=== PATIENT | female | born 1940 | race Caucasian/White ===

== ENCOUNTER → 2022-03-10 15:05 | Outpatient (BNVA) | payer MEDICARE, MEDICAID, SELFPAY | PROVIDERS: Visit Provider Family Medicine | DX: I11.0 Hypertensive heart disease with heart failure; I50.9 Heart failure, unspecified; I25.10 Atherosclerotic heart disease of native coronary artery without angina pectoris; J44.9 Chronic obstructive pulmonary disease, unspecified | CPT/HCPCS: 80053; 80061; 83721; 83880; 85025 ==

== ENCOUNTER 2022-03-31 09:25 | Observation (INO) | payer MEDICARE, MEDICAID, SELFPAY ==
[2022-03-31] VITALS (12 sets, daily range): BP systolic 108–153; BP diastolic 68–91; PULSE 73–95; RESP 16–22; TEMP 36.6–36.8; O2SAT 95–97; BMI 22.8
--- NOTE | 2022-03-31 09:57 | P.HP_ITS ---
Providers/Chief Complaint Admitting Physician: Yassine Vann MD Chief Complaint: A-Fib History of Present Illness Ashlee Linn is a 81 year old female presenting to an outside emergency department, [facility], with atrial fibrillation and rapid ventricular rate. She complained of palpitations, starting around 630 on March 30. She also had increased shortness of breath, nausea, and some sharp chest discomfort. Previous episode occurred the week prior in which she took an extra metoprolol. She has a past history of atrial fibrillation, and it had been deemed previously she was not a candidate for anticoagulant secondary to bleeding. She felt weak and that she might pass out but had no syncope. In the emergency department she received Cardizem. She was placed on a Cardizem drip. On arrival here she appears to be in sinus rhythm currently Cardizem was discontinued. She denies any chest discomfort currently. Wants to know information from discharge planning regarding assisted living. Review of Systems General: Reports: 10 or more systems reviewed and unremarkable except in HPI and below Const: Reports: fatigue; Denies: fever(s) or chills Eyes: Denies: change in vision ENMT: Denies: throat pain Card: Reports: palpitations Resp: Reports: dyspnea (Reports this is chronic.) GI: Denies: abdominal pain : Denies: flank pain Musc: Denies: neck pain Skin/Breast: Denies: rash Neuro: Denies: headache(s) Psych: Denies: anxiety or depression Endo: Denies: polyuria [place]/Lymph: Denies: easy bruising All/Imm: Denies: urticaria Medications/Allergies Home Medications Medication Instructions Recorded Confirmed Last Taken Type aspirin 81 mg capsule 81 mg PO DAILY 03/01/22 03/10/22 Unknown History fluticasone propionate 50 1 spray intranasal DAILY 03/01/22 03/10/22 Unknown History mcg/actuation nasal spray,suspension (Flonase Allergy Relief) prednisolone 5 mg tablet 2.5 mg PO BID 03/01/22 03/10/22 Unknown History vitamin B complex (B 1 tab PO DAILY 03/01/22 03/10/22 Unknown History Complex-Vitamin B12 tablet) albuterol sulfate 2.5 mg/3 mL 2.5 mg (3 mL) inhalation Q6H #180 03/08/22 03/10/22 Unknown Rx (0.083 %) solution for nebulization mL albuterol sulfate 5 mg/mL(0.5 %) 5 mg inhalation Q4H PRN 03/10/22 03/10/22 Unknown Rx solution for nebulization bronchospasm #2 units furosemide 20 mg tablet (Lasix) 20 mg PO QAM 30 days #30 tabs 03/10/22 03/10/22 Unknown Rx metoprolol tartrate 75 mg tablet 75 mg PO DAILY 30 days #30 tabs 03/10/22 03/10/22 Unknown Rx nitroglycerin 0.4 mg sublingual 0.4 mg sublingual Q5M PRN 03/10/22 03/10/22 Unknown History tablet (Nitrostat) pantoprazole 20 mg tablet,delayed 20 mg PO DAILY 30 days #30 tabs 03/10/22 03/10/22 Unknown Rx release prednisone 5 mg tablet See Rx Instructions PO DAILY #28 03/10/22 03/10/22 Unknown Rx tabs amlodipine 5 mg tablet 10 mg PO DAILY 03/31/22 03/31/22 Unknown History ferrous sulfate 325 mg (65 mg 325 mg PO DAILY 03/31/22 03/31/22 Unknown History iron) tablet Allergies Allergy/AdvReac Type Severity Reaction Status Date / Time atorvastatin [From Lipitor] Allergy Unknown Verified 03/10/22 07:50 dexamethasone Allergy Unknown Verified 03/10/22 07:50 esomeprazole [From Nexium] Allergy Unknown Verified 03/10/22 07:50 levofloxacin [From Levaquin] Allergy Unknown Verified 03/10/22 07:50 Penicillins Allergy Unknown Verified 03/10/22 07:50 pregabalin [From Lyrica] Allergy Unknown Verified 03/10/22 07:50 Bvzsyvk-HYS-CmC Reductase Allergy Unknown Verified 03/10/22 07:50 Inhibitor Sulfa (Sulfonamide Allergy Unknown Verified 03/10/22 07:50 Antibiotics) tetanus immune globulin Allergy Unknown Verified 03/10/22 07:50 novacain Allergy Unknown Uncoded 03/10/22 07:50 PFSH Acute PFSH: Medical History (Updated 03/31/22 @ 10:38 by Yassine Vann MD) CAD (coronary artery disease) CHF (congestive heart failure) Chronic a-fib Chronic back pain Chronic obstructive pulmonary disease On 2 L of oxygen chronically. Colon cancer Gastroesophageal reflux disease History of colon cancer 2012, no F/U due to prep intolerance History of heart attack Hypertension Surgical History (Updated 03/31/22 @ 10:38 by Yassine Vann MD) History of breast lump removal History of cholecystectomy History of colectomy History of heart artery stent 6 stents Family History Sister Cancer Thyroid disease Father Cancer colon Brother Cancer colon Mother Diabetes Hypertension Heart disease Grandmother Diabetes Daughter Thyroid disease Heart disease Denies family history of Clotting disorder Bleeding disorder Stroke Social History Smoking and tobacco status: former smoker Female Reproductive History: Spontaneous abortions: No Physical Exam Narrative: General exam is a white female, in no distress currently. Telemetry is showing sinus rhythm with frequent PACs HEENT: Pupils equally round. Oropharynx clear. Head is atraumatic and normocephalic. Neck is supple no lymphadenopathy or thyromegaly Cardiovascular regular rate and rhythm with frequent premature beats. No murmur Lungs?breath sounds bilaterally but no wheezes or crackles Abdomen is soft nontender with positive bowel sounds. No obvious organomegaly exam is a deferred Extremities no cyanosis, or edema, cap refill brisk Skin no rash Neuro no obvious focal deficits. Data Other Labs: Chest x-ray demonstrates no infiltrate EKG demonstrates atrial fibrillation with rapid ventricular rate, normal axis, nonspecific ST-T wave changes. Rate was 132. White blood cell count 7.1, hemoglobin 10.4, platelet count 443 Sodium 141, potassium 3.5, chloride 104, bicarb 25, BUN 15, creatinine 0.7, glucose 155. LFTs normal with exception of alk phos of 131 Calcium normal at 9.1 Troponin less than 0.012 Magnesium normal at 2.1 PT PTT normal Urinalysis 3-5 white blood cells, negative nitrate ` A&P Assessment and plan (1) Atrial fibrillation with rapid ventricular response: Patient presented with atrial fibrillation with rapid ventricular rate. I believe she has a history of paroxysmal atrial fibrillation. She is on beta-jake chronically. Increased dosing to 50 mg twice daily Add diltiazem 30 mg every 6 hours as diltiazem drip has been discontinued. She is not a candidate for anticoagulation secondary to anemia and history of GI bleeding Check echocardiogram, TSH, troponin (2) CAD (coronary artery disease): Continue aspirin, beta-jake Not on statin secondary to allergy Qualifiers: Coronary Disease-Associated Artery/Lesion type: [place] artery [place] vs. transplanted heart: [place] heart (3) Chronic obstructive pulmonary disease: Budesonide twice daily DuoNeb as needed No active exacerbation Continue her chronic prednisone Qualifiers: COPD type: chronic bronchitis Chronic bronchitis type: simple Qualified Code(s): J41.0 - Simple chronic bronchitis Plan History of CHF, compensated currently Past history of GI bleed, anemia, failing Xarelto. Anemia panel, fecal Hemoccult Multiple other medical problems as outlined in past medical history Allow natural Secondary to history of GI bleed and anemia SCDs for DVT prophylaxis. Attestations Medical Necessity Statement*: Will need less than 2 midnight stay for evaluation and treatment of atrial fibrillation with rapid ventricular rate. Coding Level of Care Code Acute Adult Parole Officer for Liyah Choi Diagnoses Atrial fibrillation with rapid ventricular response I48.91 CAD (coronary artery disease) I25.10 Coronary Disease-Associated Artery/Lesion type: [place] artery [place] vs. transplanted heart: [place] heart Chronic obstructive pulmonary disease J41.0 COPD type: chronic bronchitis Chronic bronchitis type: simple
--- NOTE | 2022-03-31 10:29 | ECG_ITS ---
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 Measurements Intervals [place] Rate: 73 P: 67 [place]: 141 QRS: 50 QRSD: 88 T: 51 QT: 397 QTc: 440 Interpretive Statements SINUS RHYTHM WITH OCCASIONAL SUPRAVENTRICULAR PREMATURE COMPLEXES NONSPECIFIC T-WAVE ABNORMALITY No previous ECG available for comparison Electronically Signed On 03-31-2022 17:23:53 CDT by Triston Ramirez M.D. [id number]
--- NOTE | 2022-03-31 10:34 | USCV_ITS ---
Ashlee Linn Age: 81 Gender: F : 1940 Exam Date: 03/31/2022 16:40 Ordering Phys: Yassine aVnn MD Technologist: Daniel Nova [place] [facility] [place]: AFIB BP: 148 / 91 HR: 76 Rhythm: Sinus Technical Quality: Adequate MEASUREMENTS (Male / Female) Normal Values 2D ECHO LV Diastolic Diameter PLAX 4.4 cm 4.2 - 5.9 / 3.9 - 5.3 cm LV Systolic Diameter PLAX 3.2 cm IVS Diastolic Thickness 1.0 cm 0.6 - 1.0 / 0.6 - 0.9 cm IVS Systolic Thickness 1.4 cm LVPW Diastolic Thickness 1.2 cm 0.6 - 1.0 / 0.6 - 0.9 cm LVPW Systolic Thickness 1.4 cm LVOT Diameter 2.0 cm LV Ejection Fraction 2D Teich 52.7 % LV Ejection Fraction MOD 2C 68.0 % LV Ejection Fraction 2C AL 69.3 % LA Diameter 3.1 cm LA Width 2.6 cm LA Height 4.1 cm RA Width 2.5 cm RA Height 3.8 cm Aorta at Sinotubular Diameter 2.1 cm IVC Diameter 1.6 cm M-MODE Aortic Annulus Diameter 2.4 cm MV E Point Septal Separation 0.7 cm DOPPLER AV Peak Velocity 160.3 cm/s LVOT Peak Velocity 84.0 cm/s AV Area Cont Eq vti 1.5 cm squared AV Area Cont Eq pk 1.6 cm squared MV Peak Velocity 100.0 cm/s MV Area PHT 4.1 cm squared Mitral E to A Ratio 0.9 MV E' Velocity 42.5 cm/s Mitral E to MV E' Ratio 9.3 Mitral E to LV E' Lateral Ratio 9.9 Mitral E to LV E' Septal Ratio 8.9 TR Peak Velocity 255.6 cm/s TR Peak Gradient 26.1 mmHg TR Mean Velocity 199.5 cm/s TR Mean Gradient 17.2 mmHg TR Velocity Time Integral 67.3 cm Right Atrial Pressure 3.0 mmHg Pulmonary Artery Systolic Pressu 29.1 mmHg PV Peak Velocity 90.0 cm/s RV Acceleration Time 0.1 s RV Ejection Time 0.2 s RV AcT/ET 0.3 FINDINGS Left Ventricle Normal left ventricular cavity size. Increased left ventricular wall thickness. Normal left ventricular systolic function. Left ventricular ejection fraction is estimated at 65 %. No diagnostic regional wall motion abnormalities. Normal diastolic function. Right Ventricle Normal right ventricular size and systolic function. Right ventricular systolic pressure 29.1 mmHg. Right Atrium Normal right atrial size. Right atrial pressure estimated at 3 mmHg. Left Atrium Normal left atrial size. Mitral Valve Mild mitral annular calcification. Structurally normal mitral valve. No mitral valve stenosis. No significant mitral valve regurgitation. Aortic Valve Aortic valve not well visualized. No aortic valve stenosis. No aortic valve regurgitation. Tricuspid Valve Structurally normal tricuspid valve. Trace tricuspid valve regurgitation. Pulmonic Valve Pulmonic valve not well visualized. No pulmonary valve stenosis. Pericardium No pericardial effusion. Prominent epicardial fat. Aorta Normal size aortic root and proximal ascending aorta. IVC Normal IVC dimension with >50% respiratory change of the inferior vena cava. CONCLUSIONS 1. This is a technically difficult study. 2. Normal left ventricular cavity size and systolic function. Increased left ventricular wall thickness. Left ventricular ejection fraction is estimated at 65 %. No diagnostic regional wall motion abnormalities. Normal diastolic function. 3. Normal right ventricular size and systolic function. 4. Pulmonary artery pressure estimated at 29 mmHg. 5. No prior similar studies to compare. Tameka Lomax MD (Electronically Signed) Final Date: 01 April 2022 10:40 S
[2022-03-31] MEDS: aspirin 81 mg EC Tablet PO (11:32)
[2022-03-31] MEDS: predniSONE 5 mg Tablet PO (11:32)
[2022-03-31] MEDS: pantoprazole DR 40 mg Tablet PO (11:32)
[2022-03-31] MEDS: FUROsemide 20 mg Tablet PO (11:33)
[2022-03-31] MEDS: metoprolol tartrate 50 mg Tablet PO ×2 (11:33→21:17)
[2022-03-31 11:34] LABS: Basophils # 0.1 10^3/uL (0.0-0.1); Eosinophils # 0.4 10^3/uL (0.0-0.8); Eosinophils % 4.5 %; Hematocrit 36.2 % (37.0-47.0); Hemoglobin 10.6 g/dL (11.5-15.3); Lymphocytes # 1.9 10^3/uL (0.8-4.8); Lymphocytes % 24.8 %; Mean Corpuscular HGB Conc 29.3 g/dL (30.0-36.0); Mean Corpuscular Volume 88.9 fl (81-99); Monocytes # 0.6 10^3/uL (0.2-0.9); Monocytes % 7.6 %; Neutrophils # 4.75 10^3/uL (1.8-7.7); Neutrophils % 61.6 %; Nucleated Red Blood Cells % 0 %; Platelet Count 437 10^3/cmm (130-400); Red Blood Count 4.07 10^6/uL (4.1-5.3); Red Cell Distribution Width 15.6 % (12.1-15.1); White Blood Count 7.7 10^3/uL (4.0-10.0)
[2022-03-31 12:20] LABS: Anion Gap 15.3 (5-19); Blood Urea Nitrogen 8 mg/dL (8-23); Calcium 9.1 mg/dL (8.5-10.5); Carbon Dioxide 26 mmol/L (22-29); Chloride 100 mmol/L (98-107); Ferritin 48 ng/mL (15-150); Glucose 103 mg/dL (65-115); Iron 14 ug/dL (37-145); Osmolality Calculated 285 mOsm/kg (285-295); Percent Saturation 5.6 % (20-50); Potassium 3.3 mmol/L (3.5-5.1); Sodium 138 mmol/L (136-145); Total Iron Binding Capacity 250 mcg/dl; Unsaturated Iron Binding 236 ug/dL (112-347)
[2022-03-31 12:30] LABS: Folate Level 18.5 ng/mL (4.8-37.3)
[2022-03-31 12:38] LABS: Troponin T (5th) Once 17 ng/L (0-10)
[2022-03-31 12:41] LABS: Vitamin B12 > 2000 pg/mL (232-1245)
[2022-03-31] MEDS: dilTIAZem 30 mg Tablet PO ×2 (13:30→19:38)
[2022-03-31] MEDS: ipratropium-albuterol 3 mL Neb INHALATION (14:04)
[2022-03-31] MEDS: iron sucrose 200 MG in sodium chloride 0.9% (100 ml) 100 ML 220 MG IV (14:50)
[2022-03-31] MEDS: potassium chloride ER 20 mEq Tablet 40 MEQ PO (14:50)
--- NOTE | 2022-03-31 19:01 | PC.NURSE ---
this nurse has reviewed and agrees with all documentation and medication administration by Nabil salinas student Nurse
[2022-03-31] MEDS: acetaminophen 325 mg Tablet 650 MG PO (19:45)
[2022-03-31] MEDS: budesonide 0.5 mg/2 mL Neb INHALATION (20:49)
[2022-04-01 01:31] VITALS: BP 128/67; PULSE 72
[2022-04-01] MEDS: dilTIAZem 30 mg Tablet PO (01:32)
[2022-04-01 04:00] VITALS: BP 120/64; PULSE 70; RESP 18; TEMP 36.8; O2SAT 93
[2022-04-01 06:23] LABS: Basophils # 0.1 10^3/uL (0.0-0.1); Basophils % 1.2 %; Eosinophils # 0.5 10^3/uL (0.0-0.8); Eosinophils % 6.6 %; Hematocrit 35.1 % (37.0-47.0); Hemoglobin 10.1 g/dL (11.5-15.3); Lymphocytes # 1.6 10^3/uL (0.8-4.8); Lymphocytes % 21.1 %; Mean Corpuscular HGB Conc 28.8 g/dL (30.0-36.0); Mean Corpuscular Hemoglobin 25.8 pg (28.0-34.0); Mean Corpuscular Volume 89.5 fl (81-99); Mean Platelet Volume 10.2 fL (7.4-10.4); Monocytes # 0.7 10^3/uL (0.2-0.9); Monocytes % 8.8 %; Neutrophils # 4.79 10^3/uL (1.8-7.7); Neutrophils % 61.8 %; Nucleated Red Blood Cells % 0 %; Platelet Count 395 10^3/cmm (130-400); Red Blood Count 3.92 10^6/uL (4.1-5.3); Red Cell Distribution Width 15.5 % (12.1-15.1); White Blood Count 7.7 10^3/uL (4.0-10.0)
[2022-04-01 06:41] LABS: Blood Urea Nitrogen 9 mg/dL (8-23); Calcium 9.5 mg/dL (8.5-10.5); Carbon Dioxide 27 mmol/L (22-29); Chloride 104 mmol/L (98-107); Glucose 94 mg/dL (65-115); Osmolality Calculated 290 mOsm/kg (285-295); Sodium 141 mmol/L (136-145)
[2022-04-01 07:17] LABS: Anion Gap 14.3 (5-19); Potassium 4.3 mmol/L (3.5-5.1)
[2022-04-01] MEDS: acetaminophen 325 mg Tablet 650 MG PO ×2 (07:23→14:08)
[2022-04-01 07:29] VITALS: PULSE 80; RESP 18; O2SAT 97
[2022-04-01] MEDS: budesonide 0.5 mg/2 mL Neb INHALATION (07:29)
[2022-04-01] MEDS: ipratropium-albuterol 3 mL Neb INHALATION (07:29)
[2022-04-01 07:39] VITALS: BP 120/64; PULSE 81; RESP 18; TEMP 36.4; O2SAT 95
[2022-04-01] MEDS: predniSONE 5 mg Tablet PO (09:02)
[2022-04-01] MEDS: aspirin 81 mg EC Tablet PO (09:02)
[2022-04-01] MEDS: dilTIAZem ER (24HR) 120 mg Capsule PO (09:02)
[2022-04-01] MEDS: pantoprazole DR 40 mg Tablet PO (09:02)
[2022-04-01] MEDS: metoprolol tartrate 50 mg Tablet PO (09:03)
[2022-04-01] MEDS: FUROsemide 20 mg Tablet PO (09:03)
--- NOTE | 2022-04-01 10:55 | PC.PHAR ---
PT STATES SHE TAKES CARE OF HER OWN MEDICATIONS-PT BROUGHT IN MED BOTTLES-PT STATES SHE IS ON A TITRATING DOSE OF PREDNISONE AND A 5MG DAILY OF PREDNISONE EXT MED HISTORY DOESNT SHOW A DAILY DOSE FILLED-PT STATES SHE USE TO BE ON PLAVIX STATES HER PCP FROM ANOTHER STATE DCED IN MAY 2021-PT STATES SHE TAKES AMLODIPINE 5MG QAM FILLED IN 03/10/22 30D/S PT BROUGHT IN MED BOTTLE DATED 02/04/22 90D/S FOR 10MG DAILY-NOTES ARE MADE IN THE PHARMACY COMMENTS
[2022-04-01 11:59] VITALS: BP 120/64; PULSE 77; RESP 16; O2SAT 97
--- NOTE | 2022-04-01 12:55 | PM.DCS ---
Discharge Providers Date of Admission: 03/31/22 09:25 Date of Discharge: April 01, 2022 Attending Provider at Admission: Yassine Vann MD Attending Provider at Discharge: Yassine Vann MD Primary Care Provider: Clara Bruno MD Diagnoses at Discharge Discharge Diagnosis (1) Atrial fibrillation with rapid ventricular response: Status: Acute (2) CAD (coronary artery disease): Status: Acute Qualifiers: Coronary Disease-Associated Artery/Lesion type: [place] artery [place] vs. transplanted heart: [place] heart (3) Chronic obstructive pulmonary disease: Status: Acute Qualifiers: COPD type: chronic bronchitis Chronic bronchitis type: simple Qualified Code(s): J41.0 - Simple chronic bronchitis Permanent problem details: On 2 L of oxygen chronically. Reason for Visit Reason for Visit: A-Fib Hospital Course Hospital Course Ashlee is an 81-year-old white female transferred from [facility] emergency department with atrial fibrillation with rapid ventricular rate. She has past history of atrial fibrillation. She reported significant palpitations, but no chest discomfort. On admission troponin was not significantly elevated, nor had it been at previous hospital. She had received Cardizem at the [facility], and was in sinus rhythm when she arrived to our institution. She was placed on metoprolol, which she had been taking at home. Dose was adjusted to 50 mg twice a day, and increase. She was also put on short acting Cardizem, that was converted to long-acting Cardizem on April 01. TSH, magnesium were checked and normal. Potassium was low and supplemented. Anticoagulation was discussed with the patient that she had prior history of GI bleeding, and a heme positive stool for which she is going to have outpatient work-up. She had been tried on Xarelto before and failed secondary to worsening anemia so this will not be done this hospital stay. Risks and benefits were discussed. Echocardiogram was performed which demonstrated preserved EF, without wall motion abnormalities. She was encouraged to follow-up with her primary care provider to discuss her anemia and heme positive stool, as well as her atrial fibrillation which is paroxysmal. Medication adjustments were discussed in detail with the patient and she had time to participate with questions and agreed with the plan. Physical Exam Narrative: General exam no distress Neck is supple no lymphadenopathy thyromegaly Cardiovascular regular rate and rhythm without murmur, no S3 or S4 Lungs clear no wheezing or crackles Abdomen is soft nontender positive bowel sounds Extremities no cyanosis clubbing or edema Skin no rash Discharge Data Studies Completed and Pending Completed Studies During Hospitalization Category Date Time Status CV. echo complete* [id number] Routine Ultrasound 03/31/22 10:34 Completed Laboratory Results WBC 7.7 10^3/uL (4.0-10.0) 04/01/22 05:31 RBC 3.92 10^6/uL (4.1-5.3) L 04/01/22 05:31 Hgb 10.1 g/dL (11.5-15.3) L 04/01/22 05:31 Hct 35.1 % (37.0-47.0) L 04/01/22 05:31 MCV 89.5 fl (81-99) 04/01/22 05:31 MCH 25.8 pg (28.0-34.0) L 04/01/22 05:31 MCHC 28.8 g/dL (30.0-36.0) L 04/01/22 05:31 RDW 15.5 % (12.1-15.1) H 04/01/22 05:31 Plt Count 395 10^3/cmm (130-400) 04/01/22 05:31 MPV 10.2 fL (7.4-10.4) 04/01/22 05:31 Neut % (Auto) 61.8 % 04/01/22 05:31 Lymph % (Auto) 21.1 % 04/01/22 05:31 [place] % (Auto) 8.8 % 04/01/22 05:31 Eos % (Auto) 6.6 % 04/01/22 05:31 Baso % (Auto) 1.2 % 04/01/22 05:31 Neut # (Auto) 4.79 10^3/uL (1.8-7.7) 04/01/22 05:31 Lymph # (Auto) 1.6 10^3/uL (0.8-4.8) 04/01/22 05:31 [place] # (Auto) 0.7 10^3/uL (0.2-0.9) 04/01/22 05:31 Eos # (Auto) 0.5 10^3/uL (0.0-0.8) 04/01/22 05:31 Baso # (Auto) 0.1 10^3/uL (0.0-0.1) 04/01/22 05:31 Nucleated RBC % (auto) 0 % 04/01/22 05:31 Nucleated RBCs # 0.0 /100WBC 04/01/22 05:31 Sodium 141 mmol/L (136-145) 04/01/22 05:31 Potassium 4.3 mmol/L (3.5-5.1) 04/01/22 05:31 Chloride 104 mmol/L (98-107) 04/01/22 05:31 Carbon Dioxide 27 mmol/L (22-29) 04/01/22 05:31 Anion Gap 14.3 (5-19) 04/01/22 05:31 BUN 9 mg/dL (8-23) 04/01/22 05:31 Creatinine 0.7 mg/dL (0.5-0.9) 04/01/22 05:31 GFR Calculation Not Reportable 04/01/22 05:31 Glucose 94 mg/dL (65-115) 04/01/22 05:31 Calculated Osmolality 290 mOsm/kg (285-295) 04/01/22 05:31 Calcium 9.5 mg/dL (8.5-10.5) 04/01/22 05:31 Magnesium 2.0 mg/dL (1.7-2.3) 03/31/22 11:27 Iron 14 ug/dL (37-145) L 03/31/22 11:27 TIBC 250 mcg/dl 03/31/22 11:27 % Saturation 5.6 % (20-50) L 03/31/22 11:27 Unsat Iron Binding 236 ug/dL (112-347) 03/31/22 11:27 Ferritin 48 ng/mL (15-150) 03/31/22 11:27 Troponin T Gen 5 ng/L 17 ng/L (0-10) H 03/31/22 11:27 Vitamin B12 > 2000 pg/mL (232-1245) H 03/31/22 11:27 Folate 18.5 ng/mL (4.8-37.3) 03/31/22 11:27 TSH 2.00 uIU/mL (0.27-4.20) 03/31/22 11:27 Vitals Last Vital Signs Temp 97.5 F L 04/01/22 07:39 Pulse 77 04/01/22 11:59 Resp 16 04/01/22 11:59 BP 120/64 04/01/22 11:59 Pulse Ox 97 04/01/22 11:59 O2 Del Method 04/01/22 11:59 O2 Flow Rate 2 04/01/22 07:29 Discharge Plan Discharge Patient Disposition: Home Condition: Stable Prescriptions: New metoprolol tartrate 50 mg Tablet 50 mg PO BID@0900,2100 Qty: 60 0RF diltiazem HCl 120 mg Capsule,Extended Release 24hr 120 mg PO DAILY Qty: 30 0RF Continued nitroglycerin [Nitrostat] 0.4 mg tablet, sublingual 0.4 mg sublingual Q5M PRN (Reason: Chest Pain) Rx Instructions: do not exceed 3 doses per episode furosemide [Lasix] 20 mg tablet 20 mg PO QAM 30 Days Qty: 30 2RF fluticasone propionate [Flonase Allergy Relief] 50 mcg/actuation spray,suspension 1 - 2 spray intranasal DAILY PRN (Reason: Allergy Symptoms) Rx Instructions: administer into each nostril ferrous sulfate 325 mg (65 mg iron) Tablet 325 mg PO QAM amlodipine 5 mg tablet 5 mg PO QAM ipratropium-albuterol 0.5 mg-3 mg(2.5 mg base)/3 mL solution for nebulization 3 ml INHALATION Q6H PRN (Reason: UNKNOWN) Vitamin B-12 2,500 mcg Tablet, Sublingual 2,500 mcg SUBLINGUAL QAM prednisone 5 mg Tablet 5 mg PO QAM Aspir-81 81 mg Tablet,Delayed Release (Dr/Ec) 81 mg PO QAM albuterol sulfate 2.5 mg /3 mL (0.083 %) solution for nebulization 2.5 mg inhalation Q6H PRN (Reason: Shortness Of Breath) pantoprazole 20 mg tablet,delayed release (DR/EC) 20 mg PO QAM albuterol sulfate 90 mcg/actuation HFA aerosol inhaler 1 puff INHALATION QID PRN (Reason: Shortness Of Breath) Qty: 8.5 3RF Discontinued prednisone 5 mg tablet See Rx Instructions PO DAILY Qty: 28 0RF Rx Instructions: Day 1-5: 3 tabs, Day 6-10: 2 tabs, Date 11-16: 1 tab then stop metoprolol tartrate 75 mg tablet 75 mg PO BEDTIME Discharge Orders: Discharge Order (Routine); Ordered 04/01/22 Ordered By: Yassine Vann Referrals: Clara Bruno MD [Primary Care Provider] - 4-7 days Discharge Diet: Cardiac Discharge Activity: Increase activity as tolerated Patient Instructions: Opioid Safety Activity Restrictions/Additional Instructions: Continue oxygen at 2 L. Return for any worsening. Follow up with your PCP. Take all meds as prescribed. Talk with your PCP regarding need for colonoscopy secondary to anemia, positive hemoccult, personal history of colon cancer. Patient's Health Concerns: Afib with RVR Assessment: Now controlled on oral meds. Plan of Treatment: Maintenance of resting heart rate less than 100 with meds Goals: See above Discharge Attestations Time Spent in Discharge Care*: greater than 30 min Quality Metrics Clinical Quality Measures [ No reported AMI, CVA or VTE this stay] Coding Level of Care Code Acute g FW DC note Diagnoses Atrial fibrillation with rapid ventricular response I48.91 CAD (coronary artery disease) I25.10 Coronary Disease-Associated Artery/Lesion type: [place] artery [place] vs. transplanted heart: [place] heart Chronic obstructive pulmonary disease J41.0 COPD type: chronic bronchitis Chronic bronchitis type: simple
[2022-04-01 15:27] VITALS: BP 120/64; PULSE 77; RESP 16; O2SAT 97
--- NOTE | 2022-04-01 15:28 | PC.NURSE ---
discharge instructions given and explained.pt verb understanding of instructions.discharged via w/c to exit at this time.pt's son to drive pt home
== END 2022-04-01 15:29 | disposition home or self-care (01) ==
PROVIDERS: Admitting Provider Internal Medicine; PCP Family Medicine; Visit Provider Internal Medicine
DX: I48.20 Chronic atrial fibrillation, unspecified (principal); I25.10 Atherosclerotic heart disease of native coronary artery without angina pectoris; J41.0 Simple chronic bronchitis; Z99.81 Dependence on supplemental oxygen; I11.0 Hypertensive heart disease with heart failure; I50.9 Heart failure, unspecified; K21.9 Gastro-esophageal reflux disease without esophagitis; Z87.891 Personal history of nicotine dependence
CPT/HCPCS: 36415; 80048; 82274; 82607; 82728; 82746; 83540; 83550; 83735; 84443; 84484; 85025; 93005; 93306; 94640; G0378; G0379; J1756; J7512; J7626

== ENCOUNTER → 2022-04-15 14:10 | Outpatient (BNVA) | payer MEDICARE, MEDICAID, SELFPAY | PROVIDERS: PCP Family Medicine; Visit Provider Family Medicine | DX: M54.9 Dorsalgia, unspecified (principal); G89.29 Other chronic pain; M25.552 Pain in left hip; J44.9 Chronic obstructive pulmonary disease, unspecified; I50.9 Heart failure, unspecified; S32.029A Unspecified fracture of second lumbar vertebra, initial encounter for closed fracture; W18.40XA Slipping, tripping and stumbling without falling, unspecified, initial encounter | CPT/HCPCS: 72100; 73502; 80048; 85025 ==

== ENCOUNTER → 2022-05-13 13:51 | Outpatient (BNVA) | payer MEDICARE, MEDICAID, SELFPAY | PROVIDERS: PCP Family Medicine; Visit Provider Family Medicine | DX: I50.9 Heart failure, unspecified (principal) | CPT/HCPCS: 80048 ==

== ENCOUNTER 2022-05-23 23:31 | Emergency (ER) | payer MEDICARE, MEDICAID, SELFPAY ==
[2022-05-23 23:44] VITALS: BP 173/96; PULSE 128; RESP 20; O2SAT 95; BMI 23.8
--- NOTE | 2022-05-23 23:45 | W.ED.FALL ---
HPI - Fall General: Chief Complaint: Fall Stated Complaint: FALL Time Seen by Provider: 05/23/22 23:44 History of Present Illness: 81-year-old female comes in today for complaints of injury sustained from a fall. Patient denies any localized pain. Patient reports she has chronic pain due to fibromyalgia. Patient also has a history of atrial fib. Patient reports that she has not felt well all day but nothing specific. Patient reports she got up from the toilet in the bathroom and then fell. Patient's alert and responding appropriately questions. Patient talks in full sentences. Patient does live at home with spouse. Patient does have home oxygen which she wears routinely. Associated symptoms-after fall: Denies chest pain Review of Systems Const: Denies: fever(s) Card: Denies: chest pain Resp: Denies: dyspnea Neuro: Reports: weakness in extremities PFS ED PFSH: Medical History CAD (coronary artery disease) CHF (congestive heart failure) Chronic a-fib Chronic back pain Chronic obstructive pulmonary disease On 2 L of oxygen chronically. Colon cancer Gastroesophageal reflux disease History of colon cancer 2012, no F/U due to prep intolerance History of heart attack Hypertension Surgical History History of breast lump removal History of cholecystectomy History of colectomy History of heart artery stent 6 stents Family History Sister Cancer Thyroid disease Father Cancer colon Brother Cancer colon Mother Diabetes Hypertension Heart disease Grandmother Diabetes Daughter Thyroid disease Heart disease Denies family history of Clotting disorder Bleeding disorder Stroke Social History Smoking and tobacco status: former smoker Female Reproductive History: Spontaneous abortions: No Physical Exam Const: COMMON NORMALS: alert HENMT: COMMON NORMALS: normocephalic HEAD & SCALP: normocephalic Eye: GENERAL EYE: appearance normal, both eyes and all related structures Neck/C-Spine: OTHER: Patient was brought in cervical immobilization. Chest: COMMONS NORMALS: normal palpation of entire chest wall Resp: COMMON NORMALS: normal respiratory effort AUSCULTATION: diminished lung sounds Cardio: COMMON NORMALS: regular rate RATE: regular rate GI: PALPATION: No Tenderness to palpation present (GI) Extremity: NARRATIVE EXTREMITY EXAM: +1 pitting edema to lower extremities bilaterally Neuro: SENSORIUM/ORIENTATION: Yes alert Skin: COMMON NORMALS: turgor normal GENERAL SKIN EXAM: turgor normal Course Vital Signs: Vital signs: Vital Signs Pulse Rate 85 05/24/22 01:46 Respiratory Rate 16 05/24/22 01:46 Blood Pressure 106/57 05/24/22 01:46 Pulse Oximetry 100 05/24/22 01:46 Oxygen Delivery Me thod 05/23/22 23:44 Oxygen Flow Rate 2 05/23/22 23:44 MDM - Fall Medical Decision Making 81-year-old female comes in today for evaluation after a fall. Patient reports that she had got up to go to the bathroom. On the way into the bathroom patient fell. Patient states that she is on why she fell. Patient states he really cannot recall what caused the fall. Patient does take Plavix routinely. Patient was talkative and talking full sentences. Exam noted some mild edema to the lower extremities. Abdomen soft nontender. No pain was noted in cervical os thoracic or lumbar spine. Patient was able to move extremities without difficulty. Patient does have some mild bilateral general weakness. No focal neural deficits. Vital signs were normal except for mild elevation of blood pressure. Differential diagnosis includes intracranial bleeding, cervical fracture, ACS, CVA, vasovagal syncope. CT of the head and cervical spine were negative for fracture or intracranial bleeding. Chest x-ray was normal. Laboratory values were stable. No signs of acute illness was noted. No signs of ACS or CVA was noted. Reviewed exam with patient with recommendations for treatment and follow-up with primary care for further evaluation and treatment. Recommend return to the ER for worsening symptoms or new concerns. Lab Data 05/24/22 00:50 05/24/22 00:50 Radiology Impressions Cervical Spine CT 05/23/22 23:49 IMPRESSION: 1. No acute findings. 2. Chronic findings above. 3. Partially assessed multinodular goiter. Chest X-Ray 05/23/22 23:49 IMPRESSION: No acute findings. Head CT 05/23/22 23:49 IMPRESSION: 1. No acute intracranial abnormality. 2. Mild age-related change. Laboratory Results WBC 14.2 10^3/uL (4.0-10.0) H 05/24/22 00:50 RBC 3.10 10^6/uL (4.1-5.3) L 05/24/22 00:50 Hgb 7.8 g/dL (11.5-15.3) L 05/24/22 00:50 Hct 27.1 % (37.0-47.0) L 05/24/22 00:50 MCV 87.4 fl (81-99) 05/24/22 00:50 MCH 25.2 pg (28.0-34.0) L 05/24/22 00:50 MCHC 28.8 g/dL (30.0-36.0) L 05/24/22 00:50 RDW 15.6 % (12.1-15.1) H 05/24/22 00:50 Plt Count 410 10^3/cmm (130-400) H 05/24/22 00:50 MPV 9.5 fL (7.4-10.4) 05/24/22 00:50 Neut % (Auto) 84.3 % 05/24/22 00:50 Lymph % (Auto) 7.7 % 05/24/22 00:50 [place] % (Auto) 5.8 % 05/24/22 00:50 Eos % (Auto) 0.9 % 05/24/22 00:50 Baso % (Auto) 0.9 % 05/24/22 00:50 Neut # (Auto) 12.00 10^3/uL (1.8-7.7) H 05/24/22 00:50 Lymph # (Auto) 1.1 10^3/uL (0.8-4.8) 05/24/22 00:50 [place] # (Auto) 0.8 10^3/uL (0.2-0.9) 05/24/22 00:50 Eos # (Auto) 0.1 10^3/uL (0.0-0.8) 05/24/22 00:50 Baso # (Auto) 0.1 10^3/uL (0.0-0.1) 05/24/22 00:50 Nucleated RBC % (auto) 0 % 05/24/22 00:50 Nucleated RBCs # 0.0 /100WBC 05/24/22 00:50 Sodium 144 mmol/L (136-145) 05/24/22 00:50 Potassium 4.1 mmol/L (3.5-5.1) 05/24/22 00:50 Chloride 104 mmol/L (98-107) 05/24/22 00:50 Carbon Dioxide 29 mmol/L (22-29) 05/24/22 00:50 Anion Gap 15.1 (5-19) 05/24/22 00:50 BUN 19 mg/dL (8-23) 05/24/22 00:50 Creatinine 0.8 mg/dL (0.5-0.9) 05/24/22 00:50 GFR Calculation Not Reportable 05/24/22 00:50 Glucose 146 mg/dL (65-115) H 05/24/22 00:50 Calculated Osmolality 303 mOsm/kg (285-295) H 05/24/22 00:50 Calcium 9.4 mg/dL (8.5-10.5) 05/24/22 00:50 Total Bilirubin 0.2 mg/dL (0.15-1.2) 05/24/22 00:50 AST 11 U/L (0-32) 05/24/22 00:50 ALT 9 U/L (0-33) 05/24/22 00:50 Alkaline Phosphatase 79 U/L (35-105) 05/24/22 00:50 Troponin T Baseline 22 ng/L (0-10) H 05/24/22 00:50 NT-Pro-B Natriuret Pep 145 pg/mL (0-450) 05/24/22 00:50 Total Protein 6.3 g/dL (6.6-8.7) L 05/24/22 00:50 Albumin 3.4 g/dL (3.5-5.2) L 05/24/22 00:50 Globulin 2.9 g/dL (1.3-4.6) 05/24/22 00:50 EKG Data EKG 1: EKG interpretation date: 05/24/22 EKG interpretation time: 00:29 Prior EKG tracings: not available for review Interpretation: EKG shows a sinus rhythm with occasional supraventricular premature complexes, no ST elevation or ectopy otherwise is noted. No prior exam was available for comparison. Discharge Plan Discharge Patient Disposition: Home Clinical Impression: Fall Qualifiers: Encounter type: initial encounter Qualified Code(s): W19.XXXA - Unspecified fall, initial encounter Condition: Stable Prescriptions: No Action potassium chloride 8 mEq capsule, extended release 8 meq PO BID 30 Days Qty: 60 2RF Hold Instructions: Home Medication placed on hold at Doctor's office albuterol sulfate 90 mcg/actuation HFA aerosol inhaler 1 puff INHALATION QID PRN (Reason: Shortness Of Breath) 30 Days Qty: 25.5 5RF Rx Instructions: 3 inhalers for 30 day supply diltiazem HCl 120 mg capsule,extended release 24hr 120 mg PO DAILY 30 Days Qty: 30 2RF prednisone 5 mg tablet 5 mg PO QAM 30 Days Qty: 30 5RF clopidogrel [Plavix] 75 mg tablet 75 mg PO DAILY 30 Days Qty: 30 5RF aspirin 325 mg tablet,delayed release (DR/EC) 325 mg PO QAM Qty: 30 0RF metoprolol succinate 25 mg tablet extended release 24 hr 75 mg PO DAILY 30 Days Qty: 90 5RF lisinopril 5 mg tablet 5 mg PO DAILY 30 Days Qty: 30 2RF furosemide [Lasix] 20 mg tablet 60 mg PO DAILY 30 Days Qty: 90 2RF Rx Instructions: 2 in AM, 1 at noon nitroglycerin [Nitrostat] 0.4 mg tablet, sublingual 0.4 mg sublingual Q5M PRN (Reason: Chest Pain) Rx Instructions: do not exceed 3 doses per episode fluticasone propionate [Flonase Allergy Relief] 50 mcg/actuation spray,suspension 1 - 2 spray intranasal DAILY PRN (Reason: Allergy Symptoms) Rx Instructions: administer into each nostril baclofen 10 mg tablet 10 mg PO TID Qty: 60 1RF ferrous sulfate 325 mg (65 mg iron) Tablet 325 mg PO QAM ipratropium-albuterol 0.5 mg-3 mg(2.5 mg base)/3 mL solution for nebulization 3 ml INHALATION Q6H PRN (Reason: UNKNOWN) Vitamin B-12 2,500 mcg Tablet, Sublingual 2,500 mcg SUBLINGUAL QAM albuterol sulfate 2.5 mg /3 mL (0.083 %) solution for nebulization 2.5 mg inhalation Q6H PRN (Reason: Shortness Of Breath) pantoprazole 20 mg tablet,delayed release (DR/EC) 20 mg PO QAM Discharge Orders: Discharge ED (Routine); Ordered 05/24/22 Ordered By: Tj White Referrals: Clara Bruno MD [Primary Care Provider] - Discharge Diet: Usual diet Discharge Activity: Increase activity as tolerated Patient Instructions: Fall Prevention (ED) Activity Restrictions/Additional Instructions: Home and rest. Activity as tolerated. You may want to use a walker to help with your walking and ambulation. Take your time with sitting up and standing. Follow-up with primary care as needed. Return to ED for worsening symptoms such as severe chest pain, increasing shortness of breath, or fever greater than 100.4. Coding Level of Care Code ED Doughnut Batter Mixer for Chg Fwd Exam Comprehensive
--- NOTE | 2022-05-23 23:49 | CTR_ITS ---
PROCEDURE INFORMATION: Exam: CT Head Without Contrast Exam date and time: 05/24/2022 12:30 AM Age: 81 years old Clinical indication: Injury or trauma; Fall; Blunt trauma (contusions or hematomas); Patient HX: Fell in bathroom at home and struck occiput. C/O head/neck pain. C collar in place. ; Additional info: Fall injury TECHNIQUE: Imaging protocol: Computed tomography of the head without contrast. Radiation optimization: All CT scans at this facility use at least one of these dose optimization techniques: automated exposure control; mA and/or kV adjustment per patient size (includes targeted exams where dose is matched to clinical indication); or iterative reconstruction. COMPARISON: No relevant prior studies available. RADIATION DOSE METRICS: Total DLP (mGy-cm): 955.88 FINDINGS: Brain: No focal hemorrhage or midline shift is identified. The ventricles and parenchyma show mild atrophy and chronic cerebral white matter ischemic change. Diffuse vascular calcification. Cerebral ventricles: No ventriculomegaly or evidence of acute hydrocephalus. Paranasal sinuses: The partially assessed sinuses are grossly clear. Mastoid air cells: Visualized mastoid air cells are well aerated. Bones/joints: No displaced skull fracture is noted. Soft tissues: Unremarkable. CT/CT head wo con* [id number] IMPRESSION: 1. No acute intracranial abnormality. 2. Mild age-related change.
--- NOTE | 2022-05-23 23:49 | CTR_ITS ---
PROCEDURE INFORMATION: Exam: CT Cervical Spine Without Contrast Exam date and time: 05/24/2022 12:33 AM Age: 81 years old Clinical indication: Injury or trauma; Fall; Blunt trauma; Patient HX: Fell in bathroom at home and struck occiput. C/O head/neck pain. C collar in place. TECHNIQUE: Imaging protocol: Computed tomography of the cervical spine without contrast. Radiation optimization: All CT scans at this facility use at least one of these dose optimization techniques: automated exposure control; mA and/or kV adjustment per patient size (includes targeted exams where dose is matched to clinical indication); or iterative reconstruction. COMPARISON: CT head wo con* [id number] 05/24/2022 12:30 AM RADIATION DOSE METRICS: Total DLP (mGy-cm): 143.27 FINDINGS: Bones/joints: No acute fracture. Normal alignment. No significant disc protrusion. No severe spinal canal stenosis. Mild cervical degenerative change, subtle for age. Lungs: Lung apices are normal. Vasculature: Diffuse vascular calcification. Soft tissues: Unremarkable. CT/CT cervical spin wo con* [id number] IMPRESSION: 1. No acute findings. 2. Chronic findings above. 3. Partially assessed multinodular goiter.
--- NOTE | 2022-05-23 23:49 | XRR_ITS ---
PROCEDURE INFORMATION: Exam: XR Chest Exam date and time: 05/24/2022 12:19 AM Age: 81 years old Clinical indication: Shortness of breath; Prior surgery; Surgery type: Coronary stent. Lumpectomy. Gb. Patient HX: C/O SOB. History of afib, chf, and copd. TECHNIQUE: Imaging protocol: Radiologic exam of the chest. Views: 1 view. COMPARISON: No relevant prior studies available. FINDINGS: Lungs: Minimal left basilar atelectasis or scarring. No consolidation. Pleural spaces: Unremarkable. No pleural effusion. No pneumothorax. Heart/Mediastinum: Unremarkable. No cardiomegaly. Bones/joints: Unremarkable. XR/XR chest 1V portable [id number] IMPRESSION: No acute findings.
--- NOTE | 2022-05-23 23:50 | ECG_ITS ---
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 Measurements Intervals [place] Rate: 93 P: 31 HI: 153 QRS: 46 QRSD: 69 T: 44 QT: 312 QTc: 390 Interpretive Statements SINUS RHYTHM WITH FREQUENT SUPRAVENTRICULAR PREMATURE COMPLEXES POSSIBLE LEFT ATRIAL ENLARGEMENT [-0.1mV P-WAVE IN V1/V2] NONSPECIFIC ST & T-WAVE ABNORMALITY ABNORMAL RHYTHM ECG Compared to ECG 03/31/2022 10:58:38 No significant changes Electronically Signed On 05-24-2022 16:41:29 DESKTOP ENGINEER by Delmar King M.D. [id number]
[2022-05-24 00:23] VITALS: BP 173/93; PULSE 90; RESP 18; O2SAT 100
[2022-05-24 01:08] VITALS: BP 122/71; PULSE 90; RESP 18; O2SAT 100
[2022-05-24 01:15] LABS: Basophils # 0.1 10^3/uL (0.0-0.1); Basophils % 0.9 %; Eosinophils # 0.1 10^3/uL (0.0-0.8); Eosinophils % 0.9 %; Hematocrit 27.1 % (37.0-47.0); Hemoglobin 7.8 g/dL (11.5-15.3); Lymphocytes # 1.1 10^3/uL (0.8-4.8); Lymphocytes % 7.7 %; Mean Corpuscular HGB Conc 28.8 g/dL (30.0-36.0); Mean Corpuscular Hemoglobin 25.2 pg (28.0-34.0); Mean Corpuscular Volume 87.4 fl (81-99); Mean Platelet Volume 9.5 fL (7.4-10.4); Monocytes # 0.8 10^3/uL (0.2-0.9); Monocytes % 5.8 %; Neutrophils % 84.3 %; Nucleated Red Blood Cells % 0 %; Platelet Count 410 10^3/cmm (130-400); Red Cell Distribution Width 15.6 % (12.1-15.1); White Blood Count 14.2 10^3/uL (4.0-10.0)
[2022-05-24 01:41] LABS: Troponin(5th) Baseline 22 ng/L (0-10)
[2022-05-24 01:46] VITALS: BP 106/57; PULSE 85; RESP 16; O2SAT 100
[2022-05-24 01:49] LABS: Alanine Aminotransferase 9 U/L (0-33); Albumin Level 3.4 g/dL (3.5-5.2); Alkaline Phosphatase 79 U/L (35-105); Anion Gap 15.1 (5-19); Aspartate Amino Transferase 11 U/L (0-32); Blood Urea Nitrogen 19 mg/dL (8-23); Calcium 9.4 mg/dL (8.5-10.5); Carbon Dioxide 29 mmol/L (22-29); Chloride 104 mmol/L (98-107); Globulin 2.9 g/dL (1.3-4.6); Glucose 146 mg/dL (65-115); NT Pro B Type Natriuretic Pept 145 pg/mL (0-450); Osmolality Calculated 303 mOsm/kg (285-295); Potassium 4.1 mmol/L (3.5-5.1); Sodium 144 mmol/L (136-145); Total Bilirubin 0.2 mg/dL (0.15-1.2); Total Protein 6.3 g/dL (6.6-8.7)
== END 2022-05-24 03:07 | disposition home or self-care (01) ==
PROVIDERS: Emergency Provider Nurse Practitioner Family; PCP Family Medicine
DX: Z03.89 Encounter for observation for other suspected diseases and conditions ruled out (principal); W18.30XA Fall on same level, unspecified, initial encounter; Z79.82 Long term (current) use of aspirin; Z87.891 Personal history of nicotine dependence; I25.10 Atherosclerotic heart disease of native coronary artery without angina pectoris; I11.0 Hypertensive heart disease with heart failure; I50.9 Heart failure, unspecified; J44.9 Chronic obstructive pulmonary disease, unspecified; Z85.038 Personal history of other malignant neoplasm of large intestine
CPT/HCPCS: 70450; 71045; 72125; 80053; 83880; 84484; 85025; 93005; 99285